=== PATIENT | female | born 1965 | race Caucasian/White ===

== ENCOUNTER 2022-03-22 14:32 | Outpatient (CLI) | payer OTHER ==
[~2022-03-22 14:32] MED LIST: CATAFLAM50 MG PO; MEDROXYPROGESTE10 MG
== END 2022-03-22 14:43 | disposition home or self-care (01) ==
LOC: RAD 14:32
PROVIDERS: ATTEND Orthopaedic Surgery
DX: M25.512 Pain in left shoulder (principal); M79.605 Pain in left leg